=== PATIENT | female | born 1960 | race Hispanic/Latino ===

== ENCOUNTER 2018-01-23 16:00 | Inpatient (IN) | payer BC ==
[~2018-01-23] VITALS: Ht 165.1 cm; Wt 127.3 kg
[2018-01-23 17:16] VITALS: BP 146/76
[2018-01-23 17:26] LABS: BASOPHILS % (AUTO) 0.9 % (0.0-5.0); EOSINOPHILS % (AUTO) 3.6 % (0.0-8.0); HEMATOCRIT 38.5 % (36-48); LYMPHOCYTES % (AUTO) 23.8 % (21.0-51.0); MEAN CORPUSCULAR HEMOGLOBIN 26.6 pg (27.0-33.0); MEAN CORPUSCULAR HGB CONC 32.8 g/dL (32.0-36.0); MONOCYTES % (AUTO) 6.4 % (3.0-13.0); NEUTROPHILS % (AUTO) 65.3 % (40.0-77.0); PLATELET COUNT (AUTO) 337 K/uL (130-400); RED BLOOD CELL COUNT(AUTO) 4.75 MIL/uL (4.00-5.50); RED CELL DISTRIBUTION WIDTH 15.6 % (11.0-15.5); WHITE BLOOD COUNT (AUTO) 8.8 K/uL (4.8-10.8)
[2018-01-23 17:26] LABS: APPEARANCE,URINE Clear (CLEAR); BILIRUBIN,URINE Negative (NEGATIVE); COLOR,URINE Yellow (YELLOW); GLUCOSE, URINE (UA) Negative (NEGATIVE); KETONES,URINE Negative (NEGATIVE); LEUKOCYTE ESTERASE ,URINE Small (NEGATIVE); NITRATE,URINE Negative (NEGATIVE); OCCULT BLOOD,URINE Trace (NEGATIVE); PH,URINE 5.5 (5.0-8.0); PROTEIN,URINE Negative (NEGATIVE)
[2018-01-23] MEDS ORDERED: METO50TA18 PO (17:41)
[2018-01-23] MEDS ORDERED: CHOL200012 PO (17:41)
[2018-01-23] MEDS ORDERED: LOVA10TA2 PO (17:41)
[2018-01-23] MEDS ORDERED: CALC-1009 PO (17:41)
[2018-01-23] MEDS ORDERED: HYDR25TA PO (17:41)
[2018-01-23] MEDS ORDERED: METF500T6 PO (17:41)
[2018-01-23 17:42] LABS: INR 1.05 (0.85-1.15); PARTIAL THROMBOPLASTIN TIME 24.7 SEC (26.3-35.5)
[2018-01-23 17:44] LABS: BACTERIA,URINE Few /HPF (None Seen); MUCUS,URINE Moderate LPF (None Seen); SQUAMOUS EPITHELIAL CELL,UR Few /HPF (0-2)
[2018-01-23 17:50] LABS: CREATININE 0.8 mg/dL (0.5-1.5); POTASSIUM 3.6 mmol/L (3.5-5.1)
[2018-01-26] VITALS (25 sets, daily range): BP systolic 119–189; BP diastolic 58–95
[2018-01-26] MEDS ORDERED: CEFAZOLIN 3GM /D5W 100ML 100 ML IV SCH (06:00)
[2018-01-26] MEDS ORDERED: SODIUM CHLORIDE 0.9% 1000ML 1,000 ML IV ONE (06:51)
[2018-01-26] MEDS: CEFAZOLIN SODIUM 1 GM VIAL ONE ×2 (07:22→08:55)
[2018-01-26] MEDS ORDERED: CEFAZOLIN SODIUM 1 GM VIAL ONE ×2 (07:27→10:11)
[2018-01-26] MEDS ORDERED: FENTANYL CITRATE PF 50 MCG/1 ML 2ML VIAL ONE ×2 (08:30→11:11)
[2018-01-26] MEDS ORDERED: GLYCOPYRROLATE 0.2 MG/ML 5 ML VIAL ONE (08:30)
[2018-01-26] MEDS ORDERED: PROPOFOL 10 MG/ML 20ML VIAL IV ONE (08:30)
[2018-01-26] MEDS ORDERED: DEXAMETHASONE SOD PHOSPHATE 10MG/ML 1ML VIAL ONE (08:30)
[2018-01-26] MEDS ORDERED: LIDOCAINE PF 2% 5ML ABBOJECT ONE (08:30)
[2018-01-26] MEDS ORDERED: MIDAZOLAM HCL 1 MG/ML 2ML VIAL ONE (08:30)
[2018-01-26] MEDS: TRANEXAMIC ACID 1000MG/10ML IV ONE (09:00)
[2018-01-26] MEDS: BUPIVACAINE/EPI/PF 0.25% 30ML VIAL IJ ONE ×2 (09:31→10:23)
[2018-01-26] MEDS ORDERED: POTASSIUM CHLORIDE 10% ELIXIR 20 MEQ/15 ML UDCUP PO PRN (10:30)
[2018-01-26] MEDS ORDERED: KETOROLAC TROMETHAMINE 15MG/ML IV PRN (10:30)
[2018-01-26] MEDS ORDERED: FERROUS FUMARATE 324 MG TABLET PO PRN (10:30)
[2018-01-26] MEDS ORDERED: ACETAMINOPHEN 325 MG TAB PO PRN (10:30)
[2018-01-26] MEDS ORDERED: LIDOCAINE HCL-MPF 1% 2ML VIAL IVP PRN (10:30)
[2018-01-26] MEDS ORDERED: ONDANSETRON HCL MDV 20ML 2 MG/ML VIAL IVP PRN (10:30)
[2018-01-26] MEDS ORDERED: TEMAZEPAM 15 MG CAPSULE PO PRN (10:30)
[2018-01-26] MEDS ORDERED: OXYCODONE HCL 5 MG TAB PO PRN ×2 (10:30)
[2018-01-26] MEDS ORDERED: POTASSIUM CHLORIDE 20MEQ/100ML 100 ML IV PRN (10:30)
[2018-01-26] MEDS ORDERED: CALCIUM CARBONATE 500 MG TABLET PO PRN (10:30)
[2018-01-26] MEDS ORDERED: DiphenhydrAMINE HCL 50 MG/ML VIAL IVP PRN (10:30)
[2018-01-26] MEDS ORDERED: ACETAMINOPHEN EXTRA STRENGTH 500 MG TABLET PO PRN (10:30)
[2018-01-26] MEDS ORDERED: TRAMADOL HCL 50 MG TABLET PO PRN (10:30)
[2018-01-26] MEDS: INSULIN HUMULIN R 100 UNIT/ML 3ML SQ SCH ×3 (11:30→20:52)
[2018-01-26] MEDS ORDERED: MEPERIDINE-PF 25 MG/ML SYG ONE (11:30)
[2018-01-26] MEDS ORDERED: MORPHINE SULFATE 4 MG/1ML SYG ONE (12:08)
[2018-01-26] MEDS: SODIUM CHLORIDE 0.9% 1000ML 1,000 ML IV SCH ×2 (15:05→23:30)
[2018-01-26] MEDS: CEFAZOLIN 3GM /D5W 100ML 100 ML IV SCH ×2 (16:15→23:33)
[2018-01-26] MEDS: PREGABALIN 25 MG CAP PO SCH (20:07)
[2018-01-26] MEDS: CELECOXIB 200 MG CAP PO SCH (20:07)
[2018-01-26] MEDS: ASPIRIN 325 MG TABLET PO SCH (20:07)
[2018-01-26] MEDS: FAMOTIDINE 20MG TAB 20 MG TAB PO SCH (20:07)
[2018-01-26] MEDS: METOPROLOL TARTRATE 50 MG TAB PO SCH (20:07)
[2018-01-26] MEDS ORDERED: **HM** VIT D3 2000 UNITS PO SCH (21:00)
[2018-01-26] MEDS ORDERED: CALCIUM 600 + VITAMIN D 400 TABLET PO SCH (21:00)
[2018-01-27 00:45] VITALS: BP 137/81
[2018-01-27 04:37] VITALS: BP 163/90
[2018-01-27 05:35] LABS: HEMATOCRIT 32.2 % (36-48); MEAN CORPUSCULAR HGB CONC 33.2 g/dL (32.0-36.0); MEAN CORPUSCULAR VOLUME 81.5 fL (79-99); PLATELET COUNT (AUTO) 263 K/uL (130-400); RED BLOOD CELL COUNT(AUTO) 3.96 MIL/uL (4.00-5.50); RED CELL DISTRIBUTION WIDTH 15.9 % (11.0-15.5); WHITE BLOOD COUNT (AUTO) 9.2 K/uL (4.8-10.8)
[2018-01-27 05:39] LABS: CREATININE 0.7 mg/dL (0.5-1.5); POTASSIUM 3.5 mmol/L (3.5-5.1)
[2018-01-27] MEDS: SODIUM CHLORIDE 0.9% 1000ML 1,000 ML IV SCH (05:41)
[2018-01-27] MEDS: INSULIN HUMULIN R 100 UNIT/ML 3ML SQ SCH ×3 (05:41→16:30)
[2018-01-27] MEDS: POTASSIUM CHLORIDE 20 MEQ ERTAB PO PRN ×2 (06:43→08:26)
[2018-01-27 07:40] VITALS: BP 162/80
[2018-01-27] MEDS: METOPROLOL TARTRATE 50 MG TAB PO SCH (08:26)
[2018-01-27] MEDS: CELECOXIB 200 MG CAP PO SCH (08:27)
[2018-01-27] MEDS: ASPIRIN 325 MG TABLET PO SCH (08:27)
[2018-01-27] MEDS: FAMOTIDINE 20MG TAB 20 MG TAB PO SCH (08:27)
[2018-01-27] MEDS: PREGABALIN 25 MG CAP PO SCH (08:27)
[2018-01-27] MEDS ORDERED: HYDROCHLOROTHIAZIDE 25 MG TABLET PO SCH (09:00)
[2018-01-27] MEDS ORDERED: METFORMIN HCL 500 MG TABLET PO SCH (09:00)
[2018-01-27] MEDS ORDERED: **HM** LOVASTATIN 10MG PO SCH (09:00)
[2018-01-27] MEDS ORDERED: POLYETHYLENE GLYCOL 3350 17 GM POWD.PACK PO SCH (09:00)
[2018-01-27 11:29] VITALS: BP 151/83
[2018-01-27 16:33] VITALS: BP 129/82
[2018-01-27] MEDS ORDERED: ASPI-1012 PO (18:20)
[2018-01-27] MEDS ORDERED: HYDR-309 PO (18:20)
[2018-01-29] MEDS ORDERED: BISACODYL 10 MG SUPP.RECT RC PRN (10:30)
== END 2018-01-27 20:00 | disposition home health service (06) | DRG 470 ==
LOC: EDSTATUS 16:00 → DAHIP 01-26 06:15 → 4AH 01-26 12:43
PROVIDERS: ADMIT Orthopaedic Surgery; ATTEND Orthopaedic Surgery
PROC: 0SRD0J9 Replacement of Left Knee Joint with Synthetic Substitute, Cemented, Open Approach (ICD-10-PCS; principal; 2018-01-26 08:26)
DX: M17.12 Unilateral primary osteoarthritis, left knee (principal); I10 Essential (primary) hypertension; I25.10 Atherosclerotic heart disease of native coronary artery without angina pectoris; Z82.49 Family history of ischemic heart disease and other diseases of the circulatory system; Z80.9 Family history of malignant neoplasm, unspecified; Z88.7 Allergy status to serum and vaccine
CPT/HCPCS: 36415; 80048; 81001; 82948; 85025; 85027; 85610; 85730; 88305; 88311; A4218; C1713; J0690; J1100; J1885; J2001; J2175; J2250; J2270; J2704; J3010; J3490; J7030

== ENCOUNTER → 2020-11-21 | Outpatient (CLI) | payer OTHER ==
[~2020-11-21] MED LIST: ASPI-1012 PO; CALC-1009 PO; CHOL200012 PO; HYDR-4457 PO; HYDR25TA PO; LOVA10TA2 PO; METF-444 PO; METO50TA18 PO
== END | disposition home or self-care (01) ==
LOC: RAH 15:55
PROVIDERS: ATTEND Physician Assistant Medical
DX: Z13.6 Encounter for screening for cardiovascular disorders (principal)
CPT/HCPCS: 75571